=== PATIENT | male | born 1990 | race Caucasian/White ===

== ENCOUNTER → 2017-03-14 | Outpatient (CLI) | payer OTHER | LOC: FIMAGING 12:21 | PROVIDERS: ATTEND Nurse Practitioner | DX: M25.572 Pain in left ankle and joints of left foot (principal) ==

== ENCOUNTER → 2017-04-08 | Outpatient (CLI) | payer OTHER | LOC: FIMAGING 08:12 | PROVIDERS: ATTEND Nurse Practitioner | DX: M76.72 Peroneal tendinitis, left leg (principal); M76.822 Posterior tibial tendinitis, left leg; M65.872 Other synovitis and tenosynovitis, left ankle and foot; M25.572 Pain in left ankle and joints of left foot ==